=== PATIENT | female | born 1935 | race Caucasian/White ===

== ENCOUNTER 2020-11-18 14:01 | Observation (INO) | payer OTHER ==
--- OUTSIDE RECORDS SUMMARY | 2020-11-18 14:05 | XMS REPORT | Continuity of Care Document ---
:1935 Author Organization [facility] t Address [address] [place] [address] [address]. [address]ne[address] [place] [address] Care Team Providers Name Role Phone David CORONADO Attending Clinician Problems This patient has no known problems. Allergies, Adverse Reactions, Alerts This patient has no known allergies or adverse reactions. Medications This patient has no known medications. Procedures This patient has no known procedures. Encounters Start End Encounter Admission Attending Care Care Encounter Source Date/Time Date/Time Type Type Clinicians Facility Department ID 2020-11-07 2020-11-07 Arnaldo Hernandez [facility] [id number] 11:23:00 14:32:00 Nickie Gupta [id number] [place] [id number] [place] [id number] Results This patient has no known results.
--- NOTE | 2020-11-18 15:35 | RAD REPORT ---
EXAM DESCRIPTION: CT - Head Brain Wo Cont - 11/18/2020 3:09 pm CLINICAL HISTORY: Alteration of awareness/confusion COMPARISON: None TECHNIQUE: Computed axial tomography of the head was obtained. IV contrast was not requested. All CT scans are performed using dose optimization technique as appropriate and may include automated exposure control or mA/KV adjustment according to patient size. FINDINGS: An intracranial bleed is not seen . The ventricles are normal in caliber. No extra-axial fluid collection is noted. Fluid within the sinuses/ mastoids is not seen. IMPRESSION: No acute intracranial abnormality is seen. If patient's symptoms persist MRI of the bra in would be recommended.
[2020-11-18 15:48] LABS: Absolute Lymphocytes (CBC) 1.2 K/uL (0.7-4.9); Basophils % 0.5 % (0-1.3); Hematocrit 42.5 % (36.0-45.0); Lymphocytes % 17.1 % (15.3-44.8); MPV 8.4 fL (7.6-11.3); RBC Red Blood Cell Count 4.37 M/uL (3.86-4.86)
[2020-11-18 15:49] LABS: Protime INR 1.04
[2020-11-18] MEDS ORDERED: ACETAMINOPHEN 325 MG TABLET ONE ×2 (15:55→16:00)
[2020-11-18 16:05] LABS: ALT/SGPT 45 U/L (12-78); AST/SGOT 62 U/L (15-37); Albumin 3.6 g/dL (3.4-5.0); Alkaline Phosphatase 58 U/L (45-117); BUN Blood Urea Nitrogen 19 mg/dL (7-18); Bicarbonate 30 mmol/L (21-32); Bilirubin Direct 0.1 mg/dL (0-0.2); Bilirubin Total 0.4 mg/dL (0.2-1.0); Glucose Level 111 mg/dL (74-106); Magnesium 1.9 mg/dL (1.8-2.4); NT PRO-BNP 211 pg/mL (<450); Potassium 3.7 mmol/L (3.5-5.1); Protein, Total 7.9 g/dL (6.4-8.2); Sodium Level 133 mmol/L (136-145); Troponin (Emerg Dept Use Only) < 0.02 ng/mL (0.0-0.045)
--- NOTE | 2020-11-18 16:23 | RAD REPORT ---
EXAM DESCRIPTION: Luz Maria Single View11/18/2020 4:11 pm CLINICAL HISTORY: Weakness COMPARISON: none FINDINGS: 5 millimeter dense structure overlies the mid right lung. It probably represents a granulo ma. Area of sclerosis within the underlying rib is another possibility. Lungs appear clear of acute infiltrate. The heart is normal size
[2020-11-18 16:35] LABS: Urine Blood Negative (Negative); Urine Glucose Negative (Negative); Urine Protein 1+ (Negative)
[2020-11-18] MEDS ORDERED: FUROSEMIDE 40 MG TABLET ONE (17:57)
--- NOTE | 2020-11-18 18:58 | P.HP ---
Certification for Inpatient Patient admitted to: Observation With expected LOS: <2 Midnights Patient will require the following post-hospital care: None Practitioner: I am a practitioner with admitting privileges, knowledge of patient current condition, hospital course, and medical plan of care. Services: Services provided to patient in accordance with Admission requirements found in Title 42 Section 412.3 of the Code of Federal Regulations Patient History Date of Service: 11/18/20 Primary Care Provider: Out of town Reason for admission: JENNA, weakness, hypotension, fever, COVID-19 History of Present Illness: 85-year-old female with history of hypertension, hypothyroidism presents emergency department after weakness, fall. Patient was at home alone sitting in a chair reports that she was trying to get up and had right lower back pain and weakness and lowered herself to the ground, family was trying to call patient and she was unable to get to her phone, family assumed that she was unconscious and came to the house. Patient was awake upon arrival to the house, family assisted her to her feet, patient was transferred to the emergency room for further evaluation. Patient was evaluated in the emergency department, labs were significant for sodium 133 chloride 94 creatinine 1.83 GFR 26 BUN 19 patient does the positive for Covid and developed fever to 101 in the emergency department. Patient not requiring any oxygen at this time, blood pressure is soft around 90/50 and heart rate also relatively low around 50. ED progress is to admit under observation for JENNA versus CKD, weakness, hypotension. - Past Medical/Surgical History -: Hypertension -: Hypothyroidism -: Cataract surgery Psychosocial/ Personal History: Retired lives at home with her daughter - Family History Father -: Heart disease Mother -: Heart disease, Diabetes - Social History Smoking Status: Never smoker Alcohol use: No CD- Drugs: No Caffeine use: Yes Place of Residence: Home Review of Systems 10-point ROS is otherwise unremarkable General: Fever, Chills, Weakness Physical Examination - Physical Exam General: Alert, In no apparent distress, Oriented x3 HEENT: Atraumatic, PERRLA, Mucous membr. moist/pink, EOMI, Sclerae nonicteric Neck: Supple, 2+ carotid pulse no bruit, No LAD, Without JVD or thyroid abnormality Respiratory: Clear to auscultation bilaterally, Normal air movement Cardiovascular: Regular rate/rhythm, Normal S1 S2 Gastrointestinal: Normal bowel sounds, No tenderness Musculoskeletal: No tenderness Integumentary: No rashes Neurological: Normal gait, Normal speech, Normal strength at 5/5 x4 extr, Normal tone, Normal affect Lymphatics: No axilla or inguinal lymphadenopathy - Studies Laboratory Data (last 24 hrs) 11/18/20 15:28: PT 12.0, INR 1.04 11/18/20 15:28: WBC 6.90, Hgb 14.2, Hct 42.5, Plt Count 167 11/18/20 15:28: Sodium 133 L, Potassium 3.7, BUN 19 H, Creatinine 1.83 H, Glucose 111 H, Magnesium 1.9, Total Bilirubin 0.4, AST 62 H, ALT 45, Alkaline Phosphatase 58 Microbiology Data (last 24 hrs): 11/18/20 15:34 Nasopharnyx Influenza Type A Antigen Screen - Final 11/18/20 15:34 Nasopharnyx Influenza Type B Antigen Screen - Final Assessment and Plan - Plan Assessment: Fall, generalized weakness Acute kidney injury Hypotension, bradycardia COVID-19 positive Hypertension Hypothyroidism Plan: Fall, generalized weakness: Patient feeling a bit better this time will have rebecca mosley evaluated by physical therapy, ambulation. Patient likely can be safely discharged home tomorrow. Acute kidney injury: Unknown baseline, patient with no known chronic kidney disease will give IV fluids at the evening, obtain renal ultrasound. Hypotension, bradycardia: Monitor on telemetry we will give some fluids as patient does appear dry. Continue monitor closely. Consult cardiology as necessary. COVID-19 positive: Nonvaccinated, tested positive today, patient with fever but no oxygen requirement this time. Will trend CRP get chest x-ray in the morning. Daily right saturations. Hypertension: We will hold blood pressure medications at this time as blood pressure is soft. Hypothyroidism: Thyroid panel with morning labs, continue home medication. DVT PPX: Heparin Code status: Full Discharge Plan: Home Plan to discharge in: 24 Hours - Advance Directives Does patient have a Living Will: No Does patient have a Durable POA for Healthcare: No - Code Status/Comfort Care Code Status Assessed: Yes (Full code) Critical Care: No Time Spent Managing Pts Care (In Minutes): 55
--- NOTE | 2020-11-18 19:04 | ER ---
Nurse's Notes [facility] Name: Melo Godoy Age: 85 yrs Sex: Female : 1935 Arrival Date: 11/18/2020 Time: 14:08 Bed 15 Private MD: Diagnosis: Coronavirus infection, unspecified;Syncope Presentation: 11/18 14:51 Chief complaint: Patient's son or daughter states: Fell and hit her right knee and kg head, unwitnessed and unsure if LOC. Daughter was on the phone with her when she fell and she just stopped talking for like 30 mins. Had her sister and friend check on her and she was on the floor. Daughter stated, " She's been dizzy and was diagnosed with vertigo one month ago at [facility]. She's been having episodes of weakness and dizziness. She's been out of her thyroid medications and just started back and I thought maybe that's why she was tired. Today she got up to take her meds and feel and hit her right knee and head but unsure what happened and or how long she had been out. She also lost bowel and bladder at that time. She's not normally incontinent. ". Coronavirus screen: Client denies travel out of the [place] in the last 14 days. At this time, unable to obtain information related to travel outside the [place] Ebola Screen: Patient negative for fever greater than or equal to 101.5 degrees Fahrenheit, and additional compatible Ebola Virus Disease symptoms Patient denies exposure to infectious person. Patient denies travel to an Ebola-affected area in the 21 days before illness onset. 14:51 Method Of Arrival: Wheelchair kg 15:02 Initial Sepsis Screen: Does the patient meet any 2 criteria? No. Patient's initial kg sepsis screen is negative. Does the patient have a suspected source of infection? No. Patient's initial sepsis screen is negative. Risk Assessment: Do you want to hurt yourself or someone else? Patient reports no desire to harm self or others. Onset of symptoms was November 18, 2020 at 11:30. 15:02 Acuity: PRABHU 3 kg Triage Assessment: 15:03 General: Appears in no apparent distress. Behavior is calm, cooperative, appropriate kg for age, quiet. Pain: Complains of pain in Right knee. Historical: - Allergies: 15:03 No Known Allergies; kg - Home Meds: 15:03 triamterene-hydrochlorothiazid 37.5-25 mg Oral tab 1 tab once daily [Active]; [place] kg Thyroid 90 mg Oral tab 1 tab once daily [Active]; - PMHx: 15:03 thyroid dysfunction; Hypertensive disorder; kg - Immunization history:: Adult Immunizations up to date. - Social history:: Smoking status: Patient denies any tobacco usage or history of. Screenin:05 Abuse screen: Denies threats or abuse. Denies injuries from another. Nutritional kg screening: No deficits noted. Tuberculosis screening: No symptoms or risk factors identified. Fall Risk None identified. Assessment: 15:32 General: Appears in no apparent distress. Behavior is calm, cooperative. Pain: Pain hb currently is 4 out of 10 on a pain scale. Neuro: Level of Consciousness is awake, alert, obeys commands, Oriented to person, place, time, situation. Cardiovascular: Patient's skin is warm and dry. Respiratory: Reports cough that is non-productive, persistent Respiratory effort is even, unlabored, Respiratory pattern is regular, symmetrical. GI: No signs and/or symptoms were reported involving the gastrointestinal system. : No signs and/or symptoms were reported regarding the genitourinary system. EENT: No signs and/or symptoms were reported regarding the EENT system. Derm: Skin is pink, warm \\T\\ dry. Musculoskeletal: No signs and/or symptoms reported regarding the musculoskeletal system. 16:29 Reassessment: Patient appears in no apparent distress at this time. Patient and/or hb family updated on plan of care and expected duration. Pain level reassessed. Patient is alert, oriented x 3, equal unlabored respirations, skin warm/dry/pink. 17:46 Reassessment: Patient appears in no apparent distress at this time. Patient and/or hb family updated on plan of care and expected duration. Pain level reassessed. Patient is alert, oriented x 3, equal unlabored respirations, skin warm/dry/pink. 18:13 Reassessment: Patient appears in no apparent distress at this time. Patient and/or em family updated on plan of care and expected duration. Pain level reassessed. Patient is alert, oriented x 3, equal unlabored respirations, skin warm/dry/pink. 19:03 Reassessment: Patient appears in no apparent distress at this time. Patient and/or hb family updated on plan of care and expected duration. Pain level reassessed. Patient is alert, oriented x 3, equal unlabored respirations, skin warm/dry/pink. Vital Signs: 15:02 BP 112 / 67; Pulse 52; Resp 20; Temp 101.2; Pulse Ox 94% on R/A; Height 5 ft. 4 in. kg (162.56 cm) (R); Pain 0/10; 16:30 BP 112 / 70; Pulse 59; Resp 18; Pulse Ox 96% on R/A; hb 17:47 BP 132 / 82; Pulse 57; Resp 15; Pulse Ox 99% on R/A; hb ED Course: 14:08 Patient arrived in ED. am2 15:03 Triage completed. kg 15:03 Arm band placed on. kg 15:05 Patient has correct armband on for positive identification. kg 15:09 CT Head Brain wo Cont In Process Unspecified. EDMS 15:10 Ascencion Evans PA is PHCP. [facility] 15:10 Vj Caceres MD is Attending Physician. [facility] 15:25 First set of blood cultures drawn by me. Inserted saline lock: 20 gauge in right 3 antecubital area, using aseptic technique. Blood collected. 15:25 EKG done, by ED staff, reviewed by Ascencion MOLINA. 3 15:28 Initial lab(s) drawn, by me, sent to lab. Second set of blood cultures drawn by me. 3 15:45 Gladys Castillo, RN is Primary Nurse. hb 16:11 XRAY Chest (1 view) In Process Unspecified. EDMS 16:30 Straight cath inserted, using sterile technique, Specimen obtained. 15 Fr Returned 3 clear yellow urine. Patient tolerated well. 16:41 Urine Culture Sent. 3 19:02 Lee Yeung MD is Hospitalizing Provider. sergei 11/19 16:00 No provider procedures requiring assistance completed. Patient admitted, IV remains in rb3 place. Administered Medications: 11/18 15:22 Drug: Tylenol 650 mg Route: PO; hb 16:29 Follow up: Response: No adverse reaction hb 17:39 Drug: Furosemide 20 mg Route: PO; hb Outcome: 19:03 Decision to Hospitalize by Provider. [facility] 11/19 16:00 Admitted to Tele accompanied by nurse, via wheelchair, room 402, with chart, Report rb3 called to TANVIR Serna. Report given by TANVIR Jiang Condition: stable Instructed on the need for admit. 16:09 Patient left the ED. eb Signatures: Dispatcher [employer] EDMS Ascencion Evans PA PA [facility] Ramin Carolina, RN RN Gladys Toscano, RN RN Pavithra Pradhan [facility] Meena Franklin Rebecca, RN RN rb3 Sakina Bryant RN RN kg
--- NOTE | 2020-11-18 19:04 | EDPHYS ---
Physician Documentation [facility] Name: Melo Godoy Age: 85 yrs Sex: Female : 1935 Arrival Date: 11/18/2020 Time: 14:08 Bed 15 Private MD: ED Physician Vj Caceres HPI: 11/18 17:14 This 85 yrs old Female presents to ER via Wheelchair with complaints of Fall jmm Injury, Head Injury-Adult. 17:14 Onset: The symptoms/episode began/occurred acutely, today. Associated injuries: The jmm patient sustained injury to the head. The patient has experienced similar episodes in the past. 85-year-old female with a history of hypothyroidism, hypertension the presents emerge department with complaints of dizziness. According to family the patient had a syncopal episode while on the phone with family. Family states that the patient was down for approximately 30 minutes. The patient states that it was a phone malfunction. Patient has no other complaints, denies chest pain, abdominal pain, vomiting, nausea, shortness of breath, dysuria.. Historical: - Allergies: 15:03 No Known Allergies; kg - Home Meds: 15:03 triamterene-hydrochlorothiazid 37.5-25 mg Oral tab 1 tab once daily [Active]; [place] kg Thyroid 90 mg Oral tab 1 tab once daily [Active]; - PMHx: 15:03 thyroid dysfunction; Hypertensive disorder; kg - Immunization history:: Adult Immunizations up to date. - Social history:: Smoking status: Patient denies any tobacco usage or history of. ROS: 17:14 Constitutional: Negative for fever, chills, and weight loss, Cardiovascular: Negative jmm for chest pain, palpitations, and edema, Respiratory: Negative for shortness of breath, cough, wheezing, and pleuritic chest pain, Abdomen/GI: Negative for abdominal pain, nausea, vomiting, diarrhea, and constipation. 17:14 Neuro: Positive for dizziness. 17:14 All other systems are negative. Exam: 17:14 Constitutional: This is a well developed, well nourished patient who is awake, alert, jmm and in no acute distress. Head/Face: atraumatic. Eyes: EOMI, no conjunctival erythema appreciated ENT: Moist Mucus Membranes Neck: Trachea midline, Supple Chest/axilla: Normal chest wall appearance and motion. Cardiovascular: Regular rate and rhythm. No edema appreciated Respiratory: Normal respirations, no respiratory distress appreciated Abdomen/GI: Non distended, soft Back: Normal ROM Skin: General appearance color normal 17:14 Musculoskeletal/extremity: ROM: intact in all extremities. 17:14 Skin: Appearance: Color: normal in color. 17:14 Neuro: Orientation: is normal, Mentation: is normal, Memory: is normal. 17:14 Psych: Behavior/mood is pleasant, cooperative. Vital Signs: 15:02 BP 112 / 67; Pulse 52; Resp 20; Temp 101.2; Pulse Ox 94% on R/A; Height 5 ft. 4 in. kg (162.56 cm) (R); Pain 0/10; 16:30 BP 112 / 70; Pulse 59; Resp 18; Pulse Ox 96% on R/A; hb 17:47 BP 132 / 82; Pulse 57; Resp 15; Pulse Ox 99% on R/A; hb MDM: 15:12 Patient medically screened. [facility] 19:02 Data reviewed: vital signs, nurses notes. Counseling: I had a detailed discussion with keaton the patient and/or guardian regarding: the historical points, exam findings, and any diagnostic results supporting the discharge/admit diagnosis, lab results, radiology results, the need for further work-up and treatment in the hospital. ED course: The patient with Kareem Guajardo who accepted the patient to Dr. Yeung service. 11/18 15:19 Order name: Basic Metabolic Panel [facility] 11/18 15:19 Order name: CBC with Diff; Complete Time: 16:18 [facility] 11/18 15:19 Order name: LFT's; Complete Time: 16:09 [facility] 11/18 15:19 Order name: Magnesium; Complete Time: 16:09 [facility] 11/18 15:19 Order name: NT PRO-BNP; Complete Time: 16:09 [facility] 11/18 15:19 Order name: PT-INR; Complete Time: 16:18 [facility] 11/18 15:19 Order name: Troponin (emerg Dept Use Only); Complete Time: 16:09 [facility] 11/18 15:19 Order name: Procalcitonin; Complete Time: 17:08 [facility] 11/18 15:19 Order name: Lactate; Complete Time: 20:37 [facility] 11/18 15:19 Order name: Urine Culture [facility] 11/18 15:19 Order name: Flu; Complete Time: 17:08 [facility] 11/18 15:19 Order name: Blood Culture Adult (2) [facility] 11/18 15:20 Order name: Basic Metabolic Panel; Complete Time: 16:09 EDMS 11/18 15:40 Order name: Glucose, Ancillary Testing; Complete Time: 15:46 EDMS 11/18 16:35 Order name: Urine Dipstick-Ancillary; Complete Time: 16:40 EDMS 11/18 17:23 Order name: SARS-COV-2 RT PCR; Complete Time: 17:27 EDMS 11/18 18:25 Order name: CRP; Complete Time: 19:01 la1 11/19 00:18 Order name: Troponin I; Complete Time: 00:27 EDMS 11/19 06:05 Order name: CBC with Automated Diff EDMS 11/19 06:30 Order name: Comprehensive Metabolic Panel EDMT 11/19 06:30 Order name: Troponin I EDMT 11/19 06:30 Order name: Lipid Profile EDMT 11/19 06:30 Order name: C-Reactive Protein EDMT 11/19 06:30 Order name: T4 Free EDMT 11/19 06:30 Order name: Magnesium EDMT 11/19 06:30 Order name: Thyroid Stimulating Hormone EDMT 11/19 11:46 Order name: CORONAVIRUS EDMT 11/19 12:46 Order name: CORONAVIRUS EDMT 11/19 13:34 Order name: SARS-COV-2 RT PCR EDMT 11/18 15:01 Order name: CT Head Brain wo Cont; Complete Time: 15:46 kg 11/18 15:19 Order name: XRAY Chest (1 view); Complete Time: 16:40 [facility] 11/18 15:19 Order name: EKG; Complete Time: 15:20 [facility] 11/18 15:19 Order name: Cardiac monitoring; Complete Time: 15:45 [facility] 11/18 15:19 Order name: EKG - Nurse/Tech; Complete Time: 15:45 [facility] 11/18 15:19 Order name: IV Saline Lock; Complete Time: 15:45 [facility] 11/18 15:19 Order name: Labs collected and sent; Complete Time: 15:45 [facility] 11/18 15:19 Order name: O2 Per Protocol; Complete Time: 15:45 jmm 11/18 15:19 Order name: O2 Sat Monitoring; Complete Time: 15:45 [facility] 11/18 15:19 Order name: Straight Cath - Urine; Complete Time: 16:29 [facility] 11/18 15:20 Order name: MRI - Brain Wo Cont [facility] 11/19 07:39 Order name: RAD EDMS 11/19 09:32 Order name: US EDMS Administered Medications: 15:22 Drug: Tylenol 650 mg Route: PO; hb 16:29 Follow up: Response: No adverse reaction hb 17:39 Drug: Furosemide 20 mg Route: PO; hb Disposition: 11/20 09:09 Co-signature as Attending Physician, Vj Caceres MD I agree with the assessment and kdr plan of care. Disposition Summary: 11/18/20 19:03 Hospitalization Ordered Hospitalization Status: Observation [facility] Provider: Lee Yeung Condition: Stable jmm Problem: new jmm Symptoms: have improved jmm Bed/Room Type: Standard [facility] Location: Telemetry/MedSurg (observation)(11/19/20 14:53) eb Room Assignment: 402(11/19/20 14:53) eb Diagnosis - Coronavirus infection, unspecified jmm - Syncope jm Forms: - Medication Reconciliation Form jmm - SBAR form jmm Signatures: Dispatcher [employer] EDMT Vj Caceres MD MD [facility] Ascencion Evans PA PA [facility] Lanny Tatum, RN RN Gladys Castillo RN RN Meena Franklin Kristen RN RN kg Corrections: (The following items were deleted from the chart) 11/18 16:23 15:20 CORONAVIRUS+LAB.BRZ ordered. [facility] 23:42 19:03 Telemetry/MedSurg (observation) [facility] cg 23:42 19:03 jm cg 11/19 01:45 11/18 23:42 [facility] ER HOLD cg cg 11/19 01:45 11/18 23:42 ERHOLD- cg cg 11/19 02:04 01:45 Telemetry/MedSurg (observation) cg cg 02:04 01:45 cg cg 14:53 02:04 [facility] ER HOLD cg eb 14:53 02:04 ERHOLD- cg eb
[2020-11-18] MEDS: ASCORBIC ACID 500 MG TABLET PO SCH (21:58)
[2020-11-18] MEDS ORDERED: ONDANSETRON 4 MG/2 ML VIAL IV PRN (21:58)
[2020-11-18] MEDS: HEPARIN 5000 UNIT/ML 1 ML VIAL SQ SCH (21:58)
[2020-11-18] MEDS ORDERED: ACETAMINOPHEN 500 MG TAB PO PRN (21:58)
[2020-11-18] MEDS: NA CHLORIDE 0.9% 1,000 ML IV SCH (21:58)
[2020-11-18] MEDS ORDERED: NA CHLORIDE 0.9% 1,000 ML ONE (22:31)
[2020-11-18] MEDS ORDERED: HEPARIN 5000 UNIT/ML 1 ML VIAL ONE (22:31)
[2020-11-18] MEDS ORDERED: ASCORBIC ACID 500 MG TABLET ONE (22:31)
[2020-11-19] MEDS: BENZONATATE 100 MG CAP PO PRN ×2 (00:38→16:05)
[2020-11-19] MEDS ORDERED: BENZONATATE 100 MG CAP PO ONE (01:01)
[2020-11-19 04:09] VITALS: BMI 23.8
[2020-11-19 05:55] LABS: Absolute Lymphocytes (CBC) 2.7 K/uL (0.7-4.9); Basophils % 0.5 % (0-1.3); Hematocrit 42.5 % (36.0-45.0); Lymphocytes % 39.4 % (15.3-44.8); MPV 8.7 fL (7.6-11.3)
[2020-11-19 06:29] LABS: ALT/SGPT 45 U/L (12-78); AST/SGOT 73 U/L (15-37); Albumin 3.3 g/dL (3.4-5.0); Alkaline Phosphatase 56 U/L (45-117); BUN Blood Urea Nitrogen 20 mg/dL (7-18); Bicarbonate 30 mmol/L (21-32); Bilirubin Total 0.3 mg/dL (0.2-1.0); Glucose Level 90 mg/dL (74-106); Potassium 3.4 mmol/L (3.5-5.1); Protein, Total 7.4 g/dL (6.4-8.2); Sodium Level 135 mmol/L (136-145)
[2020-11-19 06:30] LABS: HDL Cholesterol 59 mg/dL (40-60); LDL Cholesterol, Calculated 137 (<130); Magnesium 1.9 mg/dL (1.8-2.4); Troponin I < 0.02 ng/mL (0.0-0.045)
--- NOTE | 2020-11-19 07:39 | RAD REPORT ---
EXAM DESCRIPTION: Luz Maria Single View11/19/2020 7:23 am CLINICAL HISTORY: Chest pain COMPARISON: November 18, 2020 FINDINGS: Calcified granuloma within the lungs. The lungs appear clear of acute infiltrate. The heart is normal size IMPRESSION: No acute abnormalities displayed
[2020-11-19] MEDS: ASCORBIC ACID 500 MG TABLET PO SCH ×4 (09:00→19:50)
[2020-11-19] MEDS: ZINC SULFATE 220 MG CAP PO SCH (09:00)
[2020-11-19] MEDS ORDERED: ASPIRIN EC 81 MG TAB PO SCH (09:00)
[2020-11-19] MEDS: VITAMIN D 1000 UNIT TAB PO SCH (09:00)
[2020-11-19] MEDS: HEPARIN 5000 UNIT/ML 1 ML VIAL SQ SCH (09:00)
--- NOTE | 2020-11-19 09:32 | RAD REPORT ---
EXAM DESCRIPTION: US - Renal Ultrasound-Complete - 11/18/2020 10:44 pm CLINICAL HISTORY: Acute renal failure/chronic renal failure COMPARISON: None FINDINGS: The right kidney measures 8 cm with a normal echotexture. The left kidney measures 9 cm with a normal echotexture. Hydronephrosis is not seen. No gross abnormality of bladder IMPRESSION: Unremarkable renal ultrasound.
[2020-11-19] MEDS ORDERED: HEPARIN 5000 UNIT/ML 1 ML VIAL ONE (10:00)
[2020-11-19] MEDS ORDERED: ASPIRIN EC 81 MG TAB PO ONE (10:00)
[2020-11-19] MEDS ORDERED: ASCORBIC ACID 500 MG TABLET ONE ×2 (10:00→13:03)
[2020-11-19] MEDS ORDERED: ZINC SULFATE 220 MG CAP ONE (10:01)
[2020-11-19] MEDS ORDERED: VITAMIN D 1000 UNIT TAB ONE (10:01)
--- NOTE | 2020-11-19 10:23 | P.HP ---
Certification for Inpatient Patient admitted to: Inpatient With expected LOS: >2 Midnights Practitioner: I am a practitioner with admitting privileges, knowledge of patient current condition, hospital course, and medical plan of care. Services: Services provided to patient in accordance with Admission requirements found in Title 42 Section 412.3 of the Code of Federal Regulations Patient History Date of Service: 11/19/20 Primary Care Provider: Out of town Reason for admission: WEAKNESS, PASSED OUT History of Present Illness: MS PUENTE IS A NEW PATIENT FOR ME. SHE AT HOME WAS FOUND ON FLOOR PASSED OUT FOR HALF AN HOUR. PER PATIENT SHE DID NOT PASS OUT BUT PER DAUGHTER THEY FOUND HER ON THE FLOOR AND IT TOOK A FEW MINUTES TO WAKE HER UP. PER THEM R SIDE OF BODY WAS WEAK. SHE IS NOT EXPOSED TO COVID BUT SHE IS POSITIVE FOR COVID. SHE HAD LOW GRADE FEVER. Allergies No Known Allergies Allergy (Unverified 11/18/20 21:58) Home medications list reviewed: Yes Home Medications: Aspirin [Aspirin EC 81 MG] 81 mg PO DAILY 11/19/20 Famotidine [Pepcid] 20 mg PO DAILY 11/19/20 Thyroid,Pork [[place] Thyroid] 90 mg PO DAILY 11/19/20 Triamterene/Hydrochlorothiazid [Triamterene-Hctz 37.5-25 mg Cp] 1 cap PO DAILY 11/19/20 - Past Medical/Surgical History -: Hypertension -: Hypothyroidism -: Cataract surgery Psychosocial/ Personal History: Retired lives at home with her daughter - Family History Father -: Heart disease Mother -: Heart disease, Diabetes - Social History Smoking Status: Never smoker Alcohol use: No CD- Drugs: No Caffeine use: Yes Place of Residence: Home Review of Systems 10-point ROS is otherwise unremarkable Physical Examination - Vital Signs Temperature: 100.0 F Blood Pressure: 126/61 Pulse: 56 Respirations: 24 Pulse Ox (%): 91 - Physical Exam General: Alert, In no apparent distress (FULLY AWAKE AT BASELINE AND HAS NO SYMPTOMS. ) HEENT: Atraumatic, PERRLA, Mucous membr. moist/pink, EOMI, Sclerae nonicteric Neck: Supple, 2+ carotid pulse no bruit, No LAD, Without JVD or thyroid abnormality Respiratory: Clear to auscultation bilaterally, Normal air movement Cardiovascular: Regular rate/rhythm, Normal S1 S2 Gastrointestinal: Normal bowel sounds, No tenderness Musculoskeletal: No tenderness Integumentary: No rashes Neurological: Normal gait, Normal speech, Normal strength at 5/5 x4 extr, Normal tone, Normal affect Lymphatics: No axilla or inguinal lymphadenopathy - Studies Laboratory Data (last 24 hrs) 11/18/20 15:28: PT 12.0, INR 1.04 11/18/20 15:28: WBC 6.90, Hgb 14.2, Hct 42.5, Plt Count 167 11/18/20 15:28: Sodium 133 L, Potassium 3.7, BUN 19 H, Creatinine 1.83 H, Glucose 111 H, Magnesium 1.9, Total Bilirubin 0.4, AST 62 H, ALT 45, Alkaline Phosphatase 58 Microbiology Data (last 24 hrs): 11/18/20 15:34 Nasopharnyx Influenza Type A Antigen Screen - Final 11/18/20 15:34 Nasopharnyx Influenza Type B Antigen Screen - Final Assessment and Plan - Problems (Diagnosis) (1) Dehydration Current Visit: Yes Status: Acute Plan: IV FLUIDS. STOP DIURETICS (2) Post-COVID chronic anxiety Current Visit: Yes Status: Acute Plan: SHE HAS LOW GRADE FEVE. THIS IS THE ONLY SYMPTOM. SHE WILL REDO THE TEST. SHE MAY HAVE EARLY COVID. CONSULT DR. GOLD HE HAS TO APPROVE MEDS. NO NEED OF STEROIDS SHE IS NOT HYPOXIC. MAY BENEFIT BY BARICITNIM OR REMDESIVIR SHE IS ELDERLY. IF OUTPATIENT SHE SHOULD GET REENERON MAB. NOT AVAILABLE HERE. I TALKED TO FAMILY IN DETAIL. SHE MAY NOT BE ABLE TO GO HOME DEPENDING ON THE WEAKNESS LEVEL. (3) Hypothyroid Current Visit: Yes Status: Chronic Plan: NOT TAKEN HER MEDS FOR A MONTH. SHE IS A NEW PATIENT TO ME. RESUME EMILY. - Advance Directives Does patient have a Living Will: No Does patient have a Durable POA for Healthcare: No
[2020-11-19] MEDS: NA CHLORIDE 0.9% 1,000 ML IV SCH ×2 (11:18→17:04)
[2020-11-19] MEDS ORDERED: NA CHLORIDE 0.9% 1,000 ML ONE (11:49)
[2020-11-19] MEDS: THIAMINE HCL 100 MG TABLET PO SCH (12:42)
[2020-11-19] MEDS ORDERED: THIAMINE HCL 100 MG TABLET ONE (13:03)
[2020-11-19] MEDS: LOSARTAN POTASSIUM 50 MG TABLET PO SCH (18:36)
[2020-11-19 19:18] LABS: Urine Appearance CLEAR (Clear); Urine Bilirubin NEGATIVE (Negative); Urine Blood NEGATIVE (Negative); Urine Color YELLOW (Yellow); Urine Glucose NEGATIVE (Negative); Urine Protein TRACE (Negative); Urine Specific Gravity 1.015 (1.005-1.030)
[2020-11-19 19:47] LABS: Urine Microscopic Reflex ORDER UMIC
[2020-11-19 20:00] LABS: Urine Bacteria <20 /HPF (<20); Urine RBC <5 /HPF (NONE SEEN)
[2020-11-20] MEDS: NA CHLORIDE 0.9% 1,000 ML IV SCH (05:14)
[2020-11-20 06:54] LABS: Absolute Lymphocytes (CBC) 3.1 K/uL (0.7-4.9); Basophils % 0.2 % (0-1.3); Hematocrit 42.4 % (36.0-45.0); Lymphocytes % 39.7 % (15.3-44.8); MPV 8.6 fL (7.6-11.3); RBC Red Blood Cell Count 4.39 M/uL (3.86-4.86)
[2020-11-20] MEDS ORDERED: THYROID PORK 90 MG PO SCH (07:30)
[2020-11-20] MEDS: VITAMIN D 1000 UNIT TAB PO SCH (08:46)
[2020-11-20] MEDS: ZINC SULFATE 220 MG CAP PO SCH (08:46)
[2020-11-20] MEDS: THIAMINE HCL 100 MG TABLET PO SCH (08:47)
[2020-11-20] MEDS: ASCORBIC ACID 500 MG TABLET PO SCH ×2 (08:47→12:27)
[2020-11-20] MEDS: LOSARTAN POTASSIUM 50 MG TABLET PO SCH (08:47)
[2020-11-20 08:56] LABS: Bilirubin Total 0.3 mg/dL (0.2-1.0); C-Reactive Protein 40.7 mg/L (<3.00)
[2020-11-20 08:58] LABS: Magnesium 1.7 mg/dL (1.8-2.4); Potassium 3.8 mmol/L (3.5-5.1)
[2020-11-20] MEDS ORDERED: ASPIRIN EC 81 MG TAB PO SCH (09:00)
[2020-11-20] MEDS ORDERED: POTASSIUM CL SA 10 MEQ TAB PO SCH (09:00)
[2020-11-20] MEDS ORDERED: IVERMECTIN 3 MG TABLET PO SCH (09:00)
[2020-11-20 10:20] VITALS: TEMP 99.5
--- NOTE | 2020-11-20 10:44 | EKG ---
Test Date: 2020-11-18 Test Time: 15:23:14 [facility] [employer]: HB MEASUREMENT RESULTS: Intervals: Rate: 54 OK: 128 QRSD: 68 QT: 432 QTc: 409 Lotus: P: 57 OK: 128 QRS: 4 T: 88 INTERPRETIVE STATEMENTS: Sinus bradycardia Septal infarct, age undetermined Abnormal ECG No previous ECG available for comparison Electronically Signed On 11-20-20 10:40:13 CDT by Pavel Guthrie
--- NOTE | 2020-11-20 11:03 | P.DS ---
Admission Date: 11/18/20 Discharge Date: 11/20/20 Primary Care Provider: Out of town Disposition: ROUTINE DISCHARGE Discharge Condition: FAIR Reason for Admission: WEAKNESS, PASSED OUT - Problems (1) Dehydration Current Visit: Yes Status: Acute (2) Post-COVID chronic anxiety Current Visit: Yes Status: Acute (3) Hypothyroid Current Visit: Yes Status: Chronic Brief History of Present Illness: MS PUENTE IS A NEW PATIENT FOR ME. SHE AT HOME WAS FOUND ON FLOOR PASSED OUT FOR HALF AN HOUR. PER PATIENT SHE DID NOT PASS OUT BUT PER DAUGHTER THEY FOUND HER ON THE FLOOR AND IT TOOK A FEW MINUTES TO WAKE HER UP. PER THEM R SIDE OF BODY WAS WEAK. SHE IS NOT EXPOSED TO COVID BUT SHE IS POSITIVE FOR COVID. SHE HAD LOW GRADE FEVER. Hospital Course: MS PUENTE IS DOING GREAT. SHE WALKED TO BATHROOM WITHOUT MUCH ISSUES. HER OXYGEN REMAINS NORMAL. SHE IS EAGER TO GO HOME. SHE IS EATING WELL. HER DEHYDRATION HAS CLEARED WITH NORMAL CREAT NOW. I CHANGED HER BP MEDS TO LOSARTAN AND STOPPED DIURETICS. SHE WILL TAKE HER THYROID MEDICINE SHE HAS AT HOME. SHE IS STABLE TO GO HOME. I HAD LONG DISCUSSION WITH DAUGHTER YESTERDAY. I ADVISED MAHENDRA HALE AT [facility] THAT IS NOT AVAILABLE AT THE HOSPITAL AND IS ONE OF THE BEST TREATMENT FOR COVID PATIENTS WHO ARE AT HIGH RISK. I ALSO EXPLAINED THAT SHE MOST LIKELY HAD NO STROKE AND JUST WAS ORT HOSTATIC EVIDENT BY LABWORK. SHE IS STABLE ADN WILL FU VIRTUALLY AT OFFICE NEXT WEEK. SHE WAS GIVEN ONE DOSE OF IVERMECTINE AT HOSPITAL AND WILL GET ONE MORE DOSE IN AM. Vital Signs/Physical Exam: Temp Pulse Resp BP Pulse Ox 99.5 F 56 20 139/63 95 11/20/20 08:00 11/20/20 08:00 11/20/20 08:00 11/20/20 08:00 11/20/20 08:00 General: Alert, In no apparent distress, Oriented x3 Neck: Supple Cardiovascular: Normal S1 S2 Neurological: Normal gait Laboratory Data at Discharge: WBC 7.80 K/uL (4.3-10.9) D 11/20/20 06:23 Hgb 14.4 g/dL (12.0-15.0) 11/20/20 06:23 Hct 42.4 % (36.0-45.0) 11/20/20 06:23 Plt Count 166 K/uL (152-406) 11/20/20 06:23 PT 12.0 SECONDS (9.5-12.5) 11/18/20 15:28 INR 1.04 11/18/20 15:28 Sodium 134 mmol/L (136-145) L 11/20/20 06:23 Potassium 3.8 mmol/L (3.5-5.1) 11/20/20 06:23 BUN 15 mg/dL (7-18) 11/20/20 06:23 Creatinine 1.12 mg/dL (0.55-1.3) 11/20/20 06:23 Glucose 92 mg/dL (74-106) 11/20/20 06:23 Magnesium 1.7 mg/dL (1.8-2.4) L 11/20/20 06:23 Total Bilirubin 0.3 mg/dL (0.2-1.0) 11/20/20 06:23 AST 68 U/L (15-37) H 11/20/20 06:23 ALT 38 U/L (12-78) 11/20/20 06:23 Alkaline Phosphatase 48 U/L (45-117) 11/20/20 06:23 Troponin I < 0.02 ng/mL (0.0-0.045) 11/19/20 05:15 Triglycerides 107 mg/dL (<150) 11/19/20 05:15 Cholesterol 217 mg/dL (<200) H 11/19/20 05:15 HDL Cholesterol 59 mg/dL (40-60) 11/19/20 05:15 Cholesterol/HDL Ratio 3.68 11/19/20 05:15 Home Medications: Aspirin [Aspirin EC 81 MG] 81 mg PO DAILY 11/19/20 Famotidine [Pepcid] 20 mg PO DAILY 11/19/20 Ivermectin 15 mg PO Q48H #1 tablet 11/19/20 Losartan Potassium [Cozaar*] 50 mg PO DAILY #90 tablet 11/19/20 Thyroid,Pork [[place] Thyroid] 90 mg PO DAILY #90 11/19/20 New Medications: Thyroid,Pork [[place] Thyroid] 90 mg PO DAILY #90 Losartan Potassium [Cozaar*] 50 mg PO DAILY #90 tablet Ivermectin 15 mg PO Q48H #1 tablet Followup: NONE,NONE [Primary Care Provider] -
[2020-11-20 12:37] VITALS: BP 101/51
[2020-11-20 12:38] VITALS: O2SAT 94
[2020-11-20] MEDS ORDERED: ENOXAPARIN 30 MG/0.3 ML SQ SCH (17:00)
== END 2020-11-20 15:30 | disposition home health service (06) ==
LOC: ER 14:01 → ERHOLD 18:49 → 4TH 11-19 15:43
PROVIDERS: ADMIT Internal Medicine; ATTEND Internal Medicine
DX: U07.1 COVID-19 (principal); E86.0 Dehydration; I95.9 Hypotension, unspecified; W19.XXXA Unspecified fall, initial encounter; E03.9 Hypothyroidism, unspecified; N17.9 Acute kidney failure, unspecified; R00.1 Bradycardia, unspecified; I10 Essential (primary) hypertension; F41.9 Anxiety disorder, unspecified; Z91.14 Patient's other noncompliance with medication regimen; Z79.82 Long term (current) use of aspirin; Z82.49 Family history of ischemic heart disease and other diseases of the circulatory system; Z83.3 Family history of diabetes mellitus
CPT/HCPCS: 93005; 87040 ×2; 85025 ×3; 87086; 80048; 36415 ×2; 83735 ×3; 85610; 80061; 82947; 80076; 83605; 84443; 81003; 84484 ×3; 84439; 80053 ×2; 84145; 83880; 86140 ×3; 87804 ×2; 70450; 71045 ×2; 76770; 97116; 97161; 97530; 51702; 99285; U0003 ×2; J1644 ×2; J7030 ×3; G0378 ×4; 81015; 87088

== ENCOUNTER 2021-06-11 11:08 | Emergency (ER) | payer OTHER ==
--- NOTE | 2021-06-11 12:37 | RAD REPORT ---
EXAM DESCRIPTION: CT - Head Brain Wo Cont - 06/11/2021 12:29 pm CLINICAL HISTORY: DIZZINESS COMPARISON: Head Brain Wo Cont dated 11/18/2020 TECHNIQUE: All CT scans are performed using dose optimization technique as appropriate and may inclu de automated exposure control or mA/KV adjustment according to patient size. FINDINGS: No intracranial hemorrhage, hydrocephalus or extra-axial fluid collection.No areas of brai n edema or evidence of midline shift. The paranasal sinuses and mastoids are clear. The calvarium is intact. IMPRESSION: No acute intracranial abnormality.
--- NOTE | 2021-06-11 13:22 | RAD REPORT ---
EXAM DESCRIPTION: RAD - Chest Single View - 06/11/2021 1:04 pm CLINICAL HISTORY: Dizziness COMPARISON: Chest Single View dated 11/19/2020; Chest Single View dated 11/18/2020 FINDINGS: Lines: None. Lungs: No evidence of edema or pneumonia. Calcified nodule right mid lung Pleural: No significant pleural effusions or pneumothorax. Cardiac: The heart size is within normal limits. Bones: No acute fractures. Other: IMPRESSION: No acute cardiopulmonary disease.
[2021-06-11 14:15] LABS: Hematocrit 46.7 % (36.0-45.0); Lymphocytes % 29.9 % (15.3-44.8); MPV 7.9 fL (7.6-11.3); RBC Red Blood Cell Count 4.92 M/uL (3.86-4.86)
[2021-06-11 14:19] LABS: Protime INR 0.96
[2021-06-11 14:35] LABS: Albumin 4.2 g/dL (3.4-5.0); Bilirubin Direct 0.1 mg/dL (0-0.2); Bilirubin Total 0.4 mg/dL (0.2-1.0); Potassium 4.3 mmol/L (3.5-5.1); Protein, Total 8.5 g/dL (6.4-8.2); Troponin High Sensitivity 9.5 pg/mL (<58.9)
[2021-06-11 15:04] LABS: Blood Morphology Comment NOT SEEN (NOT SEEN); Platelet Estimate ADEQ; White Blood Cell Scan OK (OK)
--- NOTE | 2021-06-11 15:44 | EDPHYS ---
Physician Documentation [facility] Name: Melo Godoy Age: 86 yrs Sex: Female : 1935 Arrival Date: 06/11/2021 Time: 11:12 Bed 8 Private MD: ED Physician Bruce Quispe HPI: 06/11 12:17 This 86 yrs old Female presents to ER via Wheelchair with complaints of Fall Injury, pm1 Dizziness. 12:17 Details of fall: The patient fell from an upright position, while standing. Onset: The pm1 symptoms/episode began/occurred today. Associated injuries: The patient sustained no obvious injury. Severity of symptoms: in the emergency department the symptoms have resolved. The patient has not recently seen a physician, the patient's primary care provider is Dr. Aleman. Patient was getting ready for taoism and reports that she turned around to go towards a escobar way, experienced some dizziness, hit her left foot against the wall and started falling backward. She hit the wall behind her and slid down onto the floor. Patient denies any injury or pain. 12:17 Negative for chest pain, shortness of breath, headache. pm1 Historical: - Allergies: 11:29 No Known Allergies; ph - PMHx: 11:29 Hypertensive disorder; Thyroid dysfunction; ph - Immunization history: Last tetanus immunization: - up to date. - Social history:: Smoking status: Patient denies any tobacco usage or history of. ROS: 12:17 Constitutional: Negative for fever, chills, and weight loss, Neck: Negative for injury, pm1 pain, and swelling, Cardiovascular: Negative for chest pain, palpitations, and edema, Respiratory: Negative for shortness of breath, cough, wheezing, and pleuritic chest pain, Abdomen/GI: Negative for abdominal pain, nausea, vomiting, diarrhea, and constipation, Back: Negative for injury and pain, MS/Extremity: Negative for injury and deformity, Skin: Negative for injury, rash, and discoloration, Neuro: Negative for headache, weakness, numbness, tingling, and seizure. 12:17 All other systems are negative. Exam: 12:17 Constitutional: This is a well developed, well nourished patient who is awake, alert, pm1 and in no acute distress. Head/Face: Normocephalic, atraumatic. 12:17 Back: No spinal tenderness. No costovertebral tenderness. Full range of motion. Skin: Warm, dry with normal turgor. Normal color with no rashes, no lesions, and no evidence of cellulitis. MS/ Extremity: Pulses equal, no cyanosis. Neurovascular intact. Full, normal range of motion. 12:17 Eyes: Exam is negative for acute changes, Periorbital structures: appear normal, Extraocular movements: no acute changes, Conjunctiva: no acute changes, no injection. 12:17 ENT: Exam is negative for acute changes, Mouth: no acute changes, Lips: normal, moist, Oral mucosa: normal, pink and intact, moist. 12:17 Neck: Exam negative for acute changes, External neck: no acute changes, C-spine: no acute changes, vertebral tenderness, is not appreciated. 12:17 Chest/axilla: Exam negative for acute changes, Inspection: normal, no acute changes, Palpation: no acute changes. 12:17 Cardiovascular: Exam negative for acute changes, Rate: normal, Rhythm: regular, Pulses: no pulse deficits are appreciated, Heart sounds: normal, Edema: is not appreciated. 12:17 Respiratory: Exam negative for acute changes, respiratory distress, shortness of breath, Breath sounds: are clear throughout. 12:17 Abdomen/GI: Exam negative for acute changes, Inspection: abdomen appears normal, Palpation: abdomen is soft and non-tender, soft, mass, rebound tenderness. 12:17 Neuro: Exam negative for acute changes, Orientation: is normal, Mentation: is normal, Motor: is normal, moves all fours. Vital Signs: 11:34 BP 128 / 60; Pulse 54; Resp 18; Temp 97.5; Pulse Ox 100% ; Weight 59.42 kg; Height 5 ww ft. 5 in. (165.10 cm); Pain 0/10; 12:00 BP 116 / 61; Pulse 51; Resp 15; Pulse Ox 17% ; jl7 13:23 BP 154 / 73; Pulse 51; Resp 15; Pulse Ox 100% ; jl7 16:00 BP 144 / 92; Pulse 55; Resp 15; Pulse Ox 100% ; jl7 11:34 Body Mass Index 21.80 (59.42 kg, 165.10 cm) ww Bend Coma Score: 11:34 Eye Response: spontaneous(4). Verbal Response: oriented(5). Motor Response: obeys ww commands(6). Total: 15. Trauma Score (Adult): 11:34 Eye Response: spontaneous(1); Verbal Response: oriented(1); Motor Response: obeys ww commands(2); Systolic BP: > 89 mm Hg(4); Respiratory Rate: 10 to 29 per min(4); Bend Score: 15; Trauma Score: 12 MDM: 11:47 Patient medically screened. [facility] 15:41 Data reviewed: vital signs. Data interpreted: Pulse oximetry: on room air is 100 %. pm1 Interpretation: normal. Counseling: I had a detailed discussion with the patient and/or guardian regarding: the historical points, exam findings, and any diagnostic results supporting the discharge/admit diagnosis, lab results, radiology results, the need for outpatient follow up, to return to the emergency department if symptoms worsen or persist or if there are any questions or concerns that arise at home. 06/11 12:17 Order name: Basic Metabolic Panel pm1 06/11 12:17 Order name: CBC with Diff; Complete Time: 15:19 pm1 06/11 12:17 Order name: LFT's; Complete Time: 14:50 pm1 06/11 12:17 Order name: Magnesium; Complete Time: 14:50 pm1 06/11 12:17 Order name: NT PRO-BNP; Complete Time: 14:50 pm1 06/11 12:17 Order name: PT-INR; Complete Time: 14:50 pm1 06/11 12:17 Order name: Troponin HS; Complete Time: 14:50 pm1 06/11 12:17 Order name: XRAY Chest (1 view); Complete Time: 13:29 pm1 06/11 12:17 Order name: EKG; Complete Time: 12:18 pm1 06/11 12:17 Order name: Cardiac monitoring; Complete Time: 13:21 pm1 06/11 12:17 Order name: EKG - Nurse/Tech; Complete Time: 13:21 pm1 06/11 12:17 Order name: CT Head Brain wo Cont; Complete Time: 12:42 pm1 06/11 12:17 Order name: Basic Metabolic Panel; Complete Time: 14:50 EDMS 06/11 15:04 Order name: CBC Smear Scan; Complete Time: 15:19 EDMS 06/11 12:17 Order name: Labs collected and sent; Complete Time: 15:36 pm1 06/11 12:17 Order name: O2 Per Protocol; Complete Time: 12:42 pm1 06/11 12:17 Order name: O2 Sat Monitoring; Complete Time: 12:42 pm1 Administered Medications: No medications were administered Disposition: 18:30 Co-signature as Attending Physician, Bruce Quispe MD I agree with the assessment and francisco plan of care. Disposition Summary: 06/11/21 15:43 Discharge Ordered Location: Home pm1 Problem: new pm1 Symptoms: have improved pm1 Condition: Stable pm1 Diagnosis - Dizziness and giddiness pm1 - Fall on same level, unspecified pm1 Followup: pm1 - With: Emergency Department - When: As needed - Reason: Worsening of condition Followup: pm1 - With: Fabian Aleman MD - When: 2 - 3 days - Reason: Recheck today's complaints, Continuance of care, Re-evaluation by your physician Discharge Instructions: - Discharge Summary Sheet pm1 - Dizziness pm1 Forms: - Medication Reconciliation Form pm1 - Thank You Letter pm1 - Antibiotic Education pm1 - Prescription Opioid Use pm1 Signatures: Dispatcher [employer] EDBruce Aquino MD MD cha Hall, Patricia RN RN Neo Goetz NP RUBBISH COLLECTOR pm1 Lulu Oreilly, RN RN ww
--- NOTE | 2021-06-11 15:44 | ER ---
Nurse's Notes [facility] Name: Melo Godoy Age: 86 yrs Sex: Female : 1935 Arrival Date: 06/11/2021 Time: 11:12 Bed 8 Private MD: Diagnosis: Dizziness and giddiness;Fall on same level, unspecified Presentation: 06/11 11:34 Chief complaint: Patient states: Getting ready for [employer] this morning and started ww feeling weak and tingling so she sat on the floor in the bathroom. Patient denies any injuries or LOC. PCP took her off her levothyroxine last week and she is scheduled for a left leg MRI tomorrow due to having left leg weakness and tingling for months. Care prior to arrival: None. Mechanism of Injury: Fall patient sat on the ground when she became weak. Trauma event details: Injury occurred: at home. Injury occurred: June 11, 2021 Injury occurred at: 10:30. 11:34 Acuity: PRABHU 3 ww 11:34 Method Of Arrival: Wheelchair ww 11:40 Coronavirus screen: Vaccine status: Patient reports being unvaccinated. Client denies ww travel out of the [place] in the last 14 days. Ebola Screen: Patient denies travel to an Ebola-affected area in the 21 days before illness onset. Initial Sepsis Screen: Does the patient meet any 2 criteria? No. Patient's initial sepsis screen is negative. Does the patient have a suspected source of infection? No. Patient's initial sepsis screen is negative. Risk Assessment: Do you want to hurt yourself or someone else? Patient reports no desire to harm self or others. Onset of symptoms was June 11, 2021. Trauma Activation: Physician: ED Physician; Name: Jose Enrique; Notified At: ; Arrived At: Physician: General Surgeon; Name: ; Notified At: ; Arrived At: Physician: Radiology; Name: ; Notified At: ; Arrived At: Physician: Respiratory; Name: ; Notified At: ; Arrived At: Physician: Lab; Name: ; Notified At: ; Arrived At: Historical: - Allergies: 11:29 No Known Allergies; ph - PMHx: 11:29 Hypertensive disorder; Thyroid dysfunction; ph - Immunization history: Last tetanus immunization: - up to date. - Social history:: Smoking status: Patient denies any tobacco usage or history of. Screenin:34 Abuse screen: Denies threats or abuse. Denies injuries from another. Tuberculosis ww screening: No symptoms or risk factors identified. 11:49 Nutritional screening: No deficits noted. jl7 13:23 Fall Risk Fall in past 12 months (25 points). IV access (20 points). Total Henderson Fall jl7 Scale indicates High Risk Score (45 or more points). Fall prevention measures have been instituted. Side Rails Up X 2 Placed Close to Nursing Station Frequent Obs/Assessments Occuring Family Present and informed to notify staff if the need to leave the bedside As available patient and family educated on Fall Prevention Program and Strategies. Primary Survey: 11:34 NO uncontrolled hemorrhage observed. A: The patient is alert. Airway: patent. ww Breathing/Chest: Respiratory pattern: regular, Respiratory effort: unlabored. Circulation: Heart tones present. Skin color: pink, Skin temperature: warm. Disability Alert. Exposure/Environment: All clothing and personal items were removed. Forensic evidence collection is not deemed to be indicated at this time. Items placed in patient belonging bag. There is no evidence of uncontrolled external bleeding. No obvious injuries are noted at this time. 11:48 Reassessment Breathing/Chest Respiratory pattern Regular Respiratory effort Spontaneous jl7 Unlabored Chest inspection Symmetrical. Secondary Survey: 11:48 Musculoskeletal: Swelling present in left leg. jl7 Assessment: 11:34 General: Appears in no apparent distress. comfortable, Behavior is calm, cooperative. ww Pain: Denies pain. Neuro: Level of Consciousness is awake, alert, obeys commands, Oriented to person, place, time, situation, Speech is normal, left leg weakness that is being evaluated by PCP with an MRI tomorrow.. EENT: No signs and/or symptoms were reported regarding the EENT system. Cardiovascular: Denies chest pain, Patient's skin is warm and dry. Respiratory: Airway is patent Respiratory effort is even, unlabored, Respiratory pattern is regular, symmetrical. GI: No signs and/or symptoms were reported involving the gastrointestinal system. : No signs and/or symptoms were reported regarding the genitourinary system. Derm: No signs and/or symptoms reported regarding the dermatologic system. Musculoskeletal: Reports weakness in left leg Denies. 11:49 General: Appears in no apparent distress. comfortable, Behavior is calm, cooperative, jl7 appropriate for age. Pain: Denies pain. Neuro: Level of Consciousness is awake, alert, obeys commands, Oriented to person, place, time, situation, Speech is normal, Reports paresthesias in left crockett since x 6 months or more. Cardiovascular: Pulses are 3+ in right dorsalis pedis artery and left dorsalis pedis artery. Derm: Skin is pink, warm \T\ dry. Musculoskeletal: Swelling present in left leg. 13:45 Reassessment: Unable to obtain IV, industrial technologist Dominy at bedside to draw labs. jl7 15:00 Reassessment: Patient appears in no apparent distress at this time. No changes from 7 previously documented assessment. Patient and/or family updated on plan of care and expected duration. Pain level reassessed. Patient is alert, oriented x 3, equal unlabored respirations, skin warm/dry/pink. 16:00 Reassessment: Patient appears in no apparent distress at this time. No changes from jl7 previously documented assessment. Patient and/or family updated on plan of care and expected duration. Pain level reassessed. Patient is alert, oriented x 3, equal unlabored respirations, skin warm/dry/pink. 16:12 Reassessment: Pt discharged, waiting for transportation, daughter on her way. jl7 Vital Signs: 11:34 BP 128 / 60; Pulse 54; Resp 18; Temp 97.5; Pulse Ox 100% ; Weight 59.42 kg; Height 5 ww ft. 5 in. (165.10 cm); Pain 0/10; 12:00 BP 116 / 61; Pulse 51; Resp 15; Pulse Ox 17% ; jl7 13:23 BP 154 / 73; Pulse 51; Resp 15; Pulse Ox 100% ; jl7 16:00 BP 144 / 92; Pulse 55; Resp 15; Pulse Ox 100% ; jl7 11:34 Body Mass Index 21.80 (59.42 kg, 165.10 cm) ww Bosworth Coma Score: 11:34 Eye Response: spontaneous(4). Verbal Response: oriented(5). Motor Response: obeys commands(6). Total: 15. Trauma Score (Adult): 11:34 Eye Response: spontaneous(1); Verbal Response: oriented(1); Motor Response: obeys commands(2); Systolic BP: > 89 mm Hg(4); Respiratory Rate: 10 to 29 per min(4); Gerardo Score: 15; Trauma Score: 12 ED Course: 11:12 Patient arrived in ED. ds1 11:28 Carlos A Clark, TANVIR is Primary Nurse. jl7 11:29 Arm band placed on Patient placed in an exam room, on a stretcher, on pulse oximetry. ph 11:34 Patient has correct armband on for positive identification. Call light in reach. Adult ww w/ patient. patient wishes to stay in wheelchair. Wheelchair locked. 11:37 Triage completed. ww 11:47 Neo Quiles, ANNIE is PHCP. jl7 11:47 Bruce Quispe MD is Attending Physician. francisco 11:49 Pulse ox on. NIBP on. jl7 12:28 CT Head Brain wo Cont In Process Unspecified. EDMS 13:00 Missed attempt(s): 22 gauge in right antecubital area. Bleeding controlled, band aid jl7 applied, catheter tip intact. 13:04 XRAY Chest (1 view) In Process Unspecified. EDMS 13:05 Missed attempt(s): 22 gauge in left forearm. Bleeding controlled, band aid applied, jl7 catheter tip intact. 13:10 Missed attempt(s): 22 gauge in right wrist. Bleeding controlled, band aid applied, jl7 catheter tip intact. 13:15 EKG done, by ED staff, reviewed by Neo Quiles NP. jl7 13:23 Patient maintains SpO2 saturation greater than 95% on room air. Thermoregulation: warm jl7 blanket given to patient. 13:23 Wound care: to skin tear located on left elbow was cleaned with soap and water, dressed jl7 with Neosporin, band aid, Patient tolerated well. 14:00 Initial lab(s) drawn, by skill labor, sent to lab. jl7 15:42 Fabian Aleman MD is Referral Physician. pm1 16:00 No provider procedures requiring assistance completed. Patient did not have IV access jl7 during this emergency room visit. Administered Medications: No medications were administered Outcome: 15:43 Discharge ordered by . pm1 16:12 Discharged to home via wheelchair, with family. jl7 16:12 Condition: stable 16:12 Discharge instructions given to patient, Instructed on discharge instructions, follow up and referral plans. Demonstrated understanding of instructions, follow-up care. 16:33 Patient left the ED. jlJaron Signatures: Dispatcher [employer] EDBruce Aquino MD MD cha Sanford, Demi ds1 Livier Strauss RN RN Neo Goetz, ANNIE [employer] PROCESS HAND pm1 Carlos A Clark RN RN [email or web address] Lulu Oreilly RN RN ww Corrections: (The following items were deleted from the chart) 13:23 12:30 BP 154 / 73; Pulse 51bpm; Resp 15bpm; Pulse Ox 100%; costa skelton
[2021-06-11 16:37] VITALS: TEMP 97.5
[2021-06-11 16:40] VITALS: O2SAT 100
[2021-06-11 16:41] VITALS: BP 144/92
== END 2021-06-11 16:33 | disposition home or self-care (01) ==
LOC: ER 11:08
DX: R42 Dizziness and giddiness (principal); W18.30XA Fall on same level, unspecified, initial encounter; I10 Essential (primary) hypertension
CPT/HCPCS: 36415; 70450; 71045; 80048; 80076; 83735; 83880; 84484; 85025; 85610; 93005; 99284